=== PATIENT | male | born 1955 | race Caucasian/White ===

== ENCOUNTER 2019-11-02 03:40 | Emergency (ER) | payer MEDICARE ==
[~2019-11-02 03:40] MED LIST: B-1100 MG PO; CARAFATE 1GM1 G PO; CLOTRIMAZOLE AN1 CRE TOP; CRESTOR20 MG PO; FOLIC ACID 11 MG/TA1 PO; GLUCOTROL XL2.5 MG PO; GLUMETZA500 MG PO; HYGROTON25 MG PO; MICARDIS80 MG PO; NICODERM C14 MG/PATC TOP; NICODERM C7 MG/PATCH TOP; NORVASC 10MG10 MG PO; PEPCID 20MG TAB20 MG PO; RT ADVAIR 228 DISKUS IH; TRIAMCINOLONE A15 G1 TOP; ULTRAM 50MG TAB50 MG PO; VITAMIN D31000 IU PO
[2019-11-02 03:48] VITALS: BP 139/95; TEMP 97.6
[2019-11-02] MEDS ORDERED: NORCO 325 MG-51 TAB PO (04:25)
[2019-11-02 06:02] VITALS: PULSE 83
== END 2019-11-02 06:02 | disposition home or self-care (01) ==
LOC: COL.ER 03:40
DX: S52.501A Unspecified fracture of the lower end of right radius, initial encounter for closed fracture (principal); W19.XXXA Unspecified fall, initial encounter; Y92.009 Unspecified place in unspecified non-institutional (private) residence as the place of occurrence of the external cause
CPT/HCPCS: Q4021